=== PATIENT | male | born 1945 | race American Indian/Alaskan Native ===

== ENCOUNTER 2019-12-05 06:59 | Day surgery (SDC) | payer MEDICARE ==
[2019-12-05] MEDS ORDERED: SODIUM CHLORIDE 0.9% 1000 ML 1,000 ML ONE (07:40)
[2019-12-05] MEDS ORDERED: SODIUM CHLORIDE 0.9% 1000 ML 1,000 ML IV SCH (07:45)
--- NOTE | 2019-12-05 08:10 | Anesthesia Consultation ---
Anesthesia Consult and Med Hx Date of service: 12/05/19 - Airway Anesthetic Teeth Evaluation: Dentures ROM Head & Neck: Adequate Mental/Hyoid Distance: Adequate Mallampati Class: Class I - Pulmonary Exam CTA: Yes - Cardiac Exam Cardiac Exam: RRR - Pre-Operative Health Status ASA Pre-Surgery Classification: ASA2 Proposed Anesthetic Plan: MAC - Pulmonary Hx Smoking: Yes Hx Sleep Apnea: No - Cardiovascular System Hx Hypertension: Yes Hx Angina: No - Central Nervous System Hx Neuromuscular Disorder: No Hx Seizures: No Hx Psychiatric Problems: No - Gastrointestinal Hx Ulcer: No Hx Gastroesophageal Reflux Disease: No - Endocrine Hx Renal Disease: No Hx Liver Disease: No Hx Non-Insulin Dependent Diabetes: Yes Hx Thyroid Disease: No - Hematic Hx Anemia: No - Other Systems Hx Alcohol Use: Yes (Occasionally) Hx Obesity: No - Additional Comments Anesthesia Medical History Comments: Patient denied previous anesthesia complications.
--- NOTE | 2019-12-05 08:11 | Anesthesia Day of Surgery ---
Anesthesia Day of Surgery - Day of Surgery Patient Examined: Yes Patient H&P Reviewed: Yes Patient is NPO: Yes Beta Blockers: No Cardiac Clearance: No Pulmonary Clearance: No
[2019-12-05] MEDS ORDERED: LIDOCAINE MPF (2%) 20 MG/1 ML VIAL 5 ML ONE (08:17)
[2019-12-05] MEDS ORDERED: ONDANSETRON 4 MG/2 ML INJ ONE (08:17)
[2019-12-05] MEDS ORDERED: fentaNYL 100 MCG/2 ML INJ ONE (08:18)
[2019-12-05] MEDS ORDERED: propofoL 200 MG/20 ML VIAL IV ONE ×2 (08:18→08:58)
--- NOTE | 2019-12-05 09:34 | Short Stay Summary ---
Short Stay Documentation Date of service: 12/05/19 - History H&P: obtained from office - Allergies and Medications Current Medications: Allergies No Known Allergies Allergy (Unverified 12/05/19 07:27) Active Medications Sodium Chloride (Nacl 0.9% 1000 Ml) 1,000 mls @ 50 mls/hr IV DIRECT MARY - Brief post op/procedure progress note Date of procedure: 12/05/19 Findings: see dictated reports Estimated blood loss: none Pathology: list (1. antral biopsies for h.pylori 2. descending colon polyp, 3. sigmoid colon polyp) Specimen disposition: to lab Condition: stable - Disposition Condition at discharge: Good Disposition: DC-01 TO HOME OR SELFCARE - Discharge Diagnoses (1) Iron deficiency anemia due to chronic blood loss Status: Acute Short Stay Discharge Plan Activity: other (No driving for 24 hours) Weight Bearing Status: Full Weight Bearing Diet: regular Follow up with: FELISHA CASSIDY MD [Primary Care Provider] - 7 Days
--- NOTE | 2019-12-05 09:38 | Operative Report ---
Operative Report Operative Report: Date of procedure: 12/05/2019 Procedure: Esophagogastroduodenoscopy with argon plasma coagulation of a duoden al bulb AVM, biopsies of the antrum for H. pylori. Preprocedure diagnosis: Iron deficiency anemia secondary to chronic blood loss. Post procedure diagnosis: Moderate erosive gastritis, AVM of the duodenal bulb. Endoscopist: Dr. Samuels Anesthesia: Monitored anesthesia care per anesthesia department Medications: Propofol for anesthesia. Estimated blood loss: Scant After careful discussion of the nature and purpose of the procedure as well as details the technique risks benefits and alternatives consent was obtained. The patient was placed in the left lateral decubitus position and medicated per anesthesia. The tip of the [employer] EQ 570 video scope was passed per orum under direct vision into the esophagus and advanced into the stomach and descending duodenum. The descending duodenum was normal. There was a 3 mm AVM in the duodenal bulb. In light of his anemia the AVM was ablated with the argon plasma ticket printer and tagger successfully. The scope was then withdrawn into the antrum. Moderate erosive gastritis of the antrum was noted. Biopsies were taken in the prepyloric area for H. pylori testing. The stomach was further insufflated and the scope was then retroflexed and partially withdrawn. The cardia, fundus, and body of the stomach were within normal limits and easily distensible.The scope was then withdrawn in the forward position. The esophagogastric junction was at 40 cm. The esophageal body was normal throughout. The procedure was was well tolerated and the patient was observed in recovery. 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 Erosive gastritis. Plan: Await results of pathology for H. pylori. Further evaluation with colonoscopy today. Electronically signed: Giovani aSmuels MD
--- NOTE | 2019-12-05 09:42 | Operative Report ---
Operative Report Operative Report: Date of procedure: 12/05/2019 Preprocedure diagnosis: Iron deficiency anemia secondary to chronic blood loss Post procedure diagnosis: Small polyps in the descending colon and sigmoid colon. Few diverticula. Procedure: Colonoscopy to the cecum with cold snare polypectomy x2 Endoscopist: Dr. Samuels Anesthesia: Monitored anesthesia care per anesthesia department Estimated blood loss: 0 Medications: Monitored anesthesia care. See separate report by anesthesia for details. After careful discussion of the nature and purpose of the procedure as well as details of the technique risks benefits and alternatives the patient gave consent. Please see recent history and physical from the office. The patient was placed in the left lateral decubitus position and medicated per anesthesia. A rectal exam was performed sphincter tone was normal there were no masses palpable. The [employer] 570 scope was passed transanally and advanced under continuous direct vision without difficulty to the cecum. The colon was well prepared. The cecum was normal. The ascending colon was normal and on forward and retroflexed views. The transverse colon was normal. There were a few diverticula in the descending colon and sigmoid colon. In the mid descending colon there was a 6 mm sessile polyp. The polyp was removed with the snare without cautery and retrieved by suction. The sigmoid colon revealed a 5 mm sessile polyp which was also removed by cold snare and retrieved by suction. The rectum was normal on forward and retroflexed views. The procedure was well- tolerated overall and the patient was observed in recovery. Conclusions: Small polyps of the descending and sigmoid colon. Rare diverticula in the left colon. No AVMs.. Plan: Await pathology. Repeat colonoscopy in 5 years. Consideration of pill camera study. The patient will call the office in 10 days to discuss the pathology report and further evaluation. Signed electronically: Giovani Samuels M.D.
[2019-12-05 10:15] VITALS: BP 151/63
--- NOTE | 2019-12-05 10:49 | Post Anesthesia Evaluation ---
- Post Anesthesia Evaluation Patient Participated: Yes Airway Patent: Yes Stable Respiratory Function: Yes Nausea/Vomiting: No Temp > 96.8F: Yes Pain Manageable: Yes Adequeate Hydration: Yes Anesthesia Complications: No Block Receding Appropriately: Not Applicable Patient on Ventilator: No
== END 2019-12-05 07:00 | disposition home or self-care (01) ==
LOC: GIO 06:59
PROVIDERS: ATTEND Internal Medicine Gastroenterology
DX: D50.0 Iron deficiency anemia secondary to blood loss (chronic) (principal); Q27.33 Arteriovenous malformation of digestive system vessel; K57.30 Diverticulosis of large intestine without perforation or abscess without bleeding; K29.70 Gastritis, unspecified, without bleeding; D12.4 Benign neoplasm of descending colon; D12.5 Benign neoplasm of sigmoid colon; I10 Essential (primary) hypertension; E11.9 Type 2 diabetes mellitus without complications; F17.210 Nicotine dependence, cigarettes, uncomplicated; Z79.84 Long term (current) use of oral hypoglycemic drugs; Z79.899 Other long term (current) drug therapy; Z72.89 Other problems related to lifestyle; Z98.890 Other specified postprocedural states
CPT/HCPCS: 43239; 43270; 45385; 82962; 88305; J2405; J2704; J3010; J7030; 88342